=== PATIENT | male | born 1970 | race Caucasian/White ===

== ENCOUNTER 2017-01-04 12:01 | Emergency (ER) | payer MEDICAID, OTHER ==
[~2017-01-04] VITALS: Ht 177.8 cm; Wt 121.5 kg
[2017-01-04] MEDS ORDERED: ESOM40CA PO (13:13)
[2017-01-04] MEDS ORDERED: LACT1CAP11 PO (13:13)
[2017-01-04] MEDS ORDERED: CITA20TA5 PO (13:13)
[2017-01-04] MEDS ORDERED: AMLO10TA2 PO (13:13)
[2017-01-04] MEDS ORDERED: LAMO200T3 PO (13:13)
[2017-01-04] MEDS ORDERED: GABA800T2 PO (13:13)
[2017-01-04] MEDS ORDERED: [UNRECOGNIZED DRUG - OTHER] PO (13:13)
[2017-01-04] MEDS ORDERED: METO-99 PO (13:13)
[2017-01-04] MEDS ORDERED: KETOROLAC 30 MG/1 ML IVPush ONE (13:30)
[2017-01-04] MEDS ORDERED: SODIUM CHLORIDE FLUSH 10ML SYR IVF ONE (13:30)
[2017-01-04] MEDS ORDERED: MORPHINE SULFATE 4 MG/ML, 1ML IVPush PRN (13:30)
[2017-01-04] MEDS ORDERED: SODIUM CHLORIDE 0.9% 1,000ML IVBOLUS ONE (13:30)
[2017-01-04 13:43] LABS: HEMOGLOBIN 16.6 g/dL (13.7-18.0)
[2017-01-04 13:55] LABS: ASPARTATE AMINO TRANSFERASE 26 U/L (15-37); BLOOD UREA NITROGEN 11 mg/dL (7-18)
[2017-01-04 14:02] LABS: RAPID INFLUENZA A Negative (Negative); RAPID INFLUENZA B Negative (Negative)
[2017-01-04] MEDS ORDERED: KETOROLAC 30 MG/1 ML ONE (15:01)
[2017-01-04] MEDS ORDERED: MORPHINE SULFATE 4 MG/ML, 1ML ONE (15:01)
[2017-01-04 16:00] VITALS: BP 106/63
== END 2017-01-04 16:14 | disposition home or self-care (01) ==
LOC: ED 16:08
DX: J20.9 Acute bronchitis, unspecified (principal); J45.909 Unspecified asthma, uncomplicated; K21.9 Gastro-esophageal reflux disease without esophagitis; I10 Essential (primary) hypertension; E66.9 Obesity, unspecified; Z68.38 Body mass index [BMI] 38.0-38.9, adult; F17.210 Nicotine dependence, cigarettes, uncomplicated; Z88.2 Allergy status to sulfonamides
CPT/HCPCS: 36415; 71010; 80053; 85025; 87324; 87400; 96361; 96374; 96375; 99285; J1885; J7030

== ENCOUNTER 2017-02-13 20:47 | Emergency (ER) | payer SELFPAY ==
[~2017-02-13] VITALS: Ht 180.3 cm; Wt 122.4 kg
[~2017-02-13 20:47] MED LIST: AMLO10TA2 PO; CITA20TA5 PO; ESOM40CA PO; GABA800T2 PO; LACT1CAP11 PO; LAMO200T3 PO; METO-99 PO; [UNRECOGNIZED DRUG - OTHER] PO
[2017-02-13 20:50] VITALS: BP 147/84
[2017-02-13] MEDS ORDERED: HYDROcodone/APAP 5/325 TABLET PO ONE (21:30)
[2017-02-13] MEDS ORDERED: HYDROcodone/APAP 5/325 TABLET ONE (21:40)
== END 2017-02-13 22:16 | disposition home or self-care (01) ==
LOC: ED 22:10
DX: M25.562 Pain in left knee (principal); G89.29 Other chronic pain; K21.9 Gastro-esophageal reflux disease without esophagitis; I10 Essential (primary) hypertension; J45.909 Unspecified asthma, uncomplicated
CPT/HCPCS: 99284

== ENCOUNTER 2017-03-16 18:09 | Inpatient (IN) | payer MEDICAID ==
[~2017-03-16] VITALS: Ht 177.8 cm; Wt 122.1 kg
[2017-03-16] MEDS ORDERED: EMTR1TAB12 PO (18:27)
[2017-03-16] MEDS ORDERED: RIZA10TA20 PO (18:27)
[2017-03-16] MEDS ORDERED: NITROGLYCERIN SINGLE TAB 0.4 MG SL ONE (18:47)
[2017-03-16] MEDS: NITROGLYCERIN SINGLE TAB 0.4 MG SL PRN ×2 (18:54→19:02)
[2017-03-16] MEDS ORDERED: SODIUM CHLORIDE FLUSH 10ML SYR IVF ONE (19:00)
[2017-03-16 19:21] LABS: BLOOD UREA NITROGEN 9 mg/dL (7-18)
[2017-03-16] MEDS ORDERED: ONDANSETRON 2MG/ML, 2ML ONE (19:58)
[2017-03-16] MEDS ORDERED: MORPHINE SULFATE 4 MG/ML, 1ML ONE ×2 (19:58→21:59)
[2017-03-16] MEDS ORDERED: ONDANSETRON 2MG/ML, 2ML IVPush ONE (20:00)
[2017-03-16] MEDS: MORPHINE SULFATE 4 MG/ML, 1ML IVPush PRN ×2 (20:04→22:10)
[2017-03-16] MEDS ORDERED: SODIUM CHLORIDE FLUSH 10ML SYR IVF PRN (21:30)
[2017-03-16] MEDS ORDERED: HEPARIN 5,000 UNITS/ML, 1ML ONE (21:59)
[2017-03-16] MEDS ORDERED: HEPARIN 5,000 UNITS/ML, 1ML IV ONE (22:00)
[2017-03-16] MEDS ORDERED: HEPARIN 25,000 UNITS/500ML PMX 500 ML ONE (22:00)
[2017-03-16] MEDS: HEPARIN 25,000 UNITS/500ML PMX 500 ML IV PRN (22:14)
[2017-03-16] MEDS ORDERED: DOCUSATE 100 MG CAPSULE PO PRN (23:00)
[2017-03-16] MEDS ORDERED: TRAZODONE 50MG TABLET PO PRN (23:00)
[2017-03-16] MEDS ORDERED: RIZATRIPTAN BENZOATE PO PRN (23:00)
[2017-03-16] MEDS ORDERED: BISACODYL 10 MG SUPP PR PRN (23:00)
[2017-03-16] MEDS ORDERED: ACETAMINOPHEN 325 MG TABLET PO PRN (23:00)
[2017-03-16] MEDS ORDERED: POLYETHYLENE GLYCOL 17 GM PACKET PO PRN (23:00)
[2017-03-16] MEDS ORDERED: LABETALOL 5MG/ML, 20ML IVPush PRN (23:00)
[2017-03-16 23:46] LABS: IS PT STATUS REG ER OR PRE ER? YES
[2017-03-16 23:59] VITALS: BP 117/81
[2017-03-17] MEDS: SODIUM CHLORIDE 0.9% 1,000 ML IV SCH ×4 (01:30→16:20)
[2017-03-17 03:36] VITALS: BP 116/73
[2017-03-17 06:19] LABS: ASPARTATE AMINO TRANSFERASE 41 U/L (15-37); BLOOD UREA NITROGEN 11 mg/dL (7-18)
[2017-03-17 06:27] LABS: IS PT STATUS REG ER OR PRE ER? NO
[2017-03-17] MEDS: HEPARIN 5,000 UNITS/ML, 1ML IV PRN ×2 (06:33→21:27)
[2017-03-17 07:05] VITALS: BP 118/75
[2017-03-17] MEDS: PANTOPROZOLE 40MG TABLET PO SCH (08:11)
[2017-03-17] MEDS: EMTRICITABINE/TENOFOVIR 200 MG/300 MG TABLET PO SCH (08:11)
[2017-03-17] MEDS: ASPIRIN 81 MG TABLET CHEW PO SCH (08:11)
[2017-03-17] MEDS: LAMOTRIGINE 200 MG TABLET PO SCH ×2 (08:12→20:44)
[2017-03-17] MEDS: GABAPENTIN 400 MG CAPSULE PO SCH ×3 (08:12→21:23)
[2017-03-17] MEDS: AMLODIPINE 5 MG TABLET PO SCH (08:12)
[2017-03-17] MEDS: CITALOPRAM 20 MG TABLET PO SCH (08:12)
[2017-03-17] MEDS: METOPROLOL TARTRATE 100 MG TABLET PO SCH ×2 (08:13→20:44)
[2017-03-17] MEDS: LACTOBACILLUS 1GM/ PACKET PO SCH (08:13)
[2017-03-17] MEDS ORDERED: FENTANYL PF 100 MCG/2ML ONE (12:44)
[2017-03-17] MEDS ORDERED: LIDOCAINE 2%, 20ML ONE (12:44)
[2017-03-17] MEDS ORDERED: TICAGRELOR 90 MG TABLET ONE (12:44)
[2017-03-17] MEDS ORDERED: MIDAZOLAM 1 MG/ML, 5ML ONE (12:44)
[2017-03-17] MEDS ORDERED: BIVALIRUDIN 250 MG ONE (12:44)
[2017-03-17] MEDS ORDERED: VERAPAMIL 2.5 MG/ML, 2ML ONE (12:44)
[2017-03-17] MEDS ORDERED: HEPARIN 1,000 UNITS/ML, 10ML ONE (12:44)
[2017-03-17] MEDS ORDERED: DIPHENHYDRAMINE 50 MG/ML, 1ML ONE (13:11)
[2017-03-17] MEDS ORDERED: SODIUM CHLORIDE 0.9% 1,000 ML IV SCH (14:08)
[2017-03-17 14:23] VITALS: BP 112/69
[2017-03-17 15:53] LABS: HIV 1&2 ANTIBODY SCREEN Nonreactive (Nonreactive); HIV-1 p24 ANTIGEN Nonreactive (Nonreactive)
[2017-03-17 20:16] VITALS: BP 115/74
[2017-03-17] MEDS: HEPARIN 25,000 UNITS/500ML PMX 500 ML IV PRN (21:32)
[2017-03-18] VITALS (8 sets, daily range): BP systolic 103–120; BP diastolic 58–83
[2017-03-18] MEDS: SODIUM CHLORIDE 0.9% 1,000 ML IV SCH ×2 (03:07→09:52)
[2017-03-18] MEDS: HEPARIN 5,000 UNITS/ML, 1ML IV PRN ×2 (06:33→20:06)
[2017-03-18] MEDS: ASPIRIN 81 MG TABLET CHEW PO SCH (09:49)
[2017-03-18] MEDS: CITALOPRAM 20 MG TABLET PO SCH (09:49)
[2017-03-18] MEDS: LACTOBACILLUS 1GM/ PACKET PO SCH (09:49)
[2017-03-18] MEDS: METOPROLOL TARTRATE 100 MG TABLET PO SCH ×2 (09:50→20:38)
[2017-03-18] MEDS: GABAPENTIN 400 MG CAPSULE PO SCH ×3 (09:50→20:12)
[2017-03-18] MEDS: LAMOTRIGINE 200 MG TABLET PO SCH ×2 (09:50→20:12)
[2017-03-18] MEDS: PANTOPROZOLE 40MG TABLET PO SCH (09:51)
[2017-03-18] MEDS: EMTRICITABINE/TENOFOVIR 200 MG/300 MG TABLET PO SCH (09:51)
[2017-03-18] MEDS: AMLODIPINE 5 MG TABLET PO SCH (09:51)
[2017-03-18] MEDS ORDERED: NITROGLYCERIN 0.4 MG/SPRAY ONE (13:45)
[2017-03-18] MEDS: NITROGLYCERIN 0.4 MG/SPRAY SL PRN ×3 (13:51→13:55)
[2017-03-18] MEDS ORDERED: NITROGLYCERIN 0.4 MG BOTTLE (25 TABS) SL PRN (14:00)
[2017-03-18] MEDS ORDERED: MORPHINE SULFATE 4 MG/ML, 1ML ONE (14:04)
[2017-03-18] MEDS: morphine SULFATE 10 MG/ML, 1ML IVPush PRN ×2 (14:06→14:20)
[2017-03-18] MEDS: NITROGLYCERIN OINT 2%, 1GM TP SCH ×2 (14:30→20:13)
[2017-03-18] MEDS: HEPARIN 25,000 UNITS/500ML PMX 500 ML IV PRN (16:04)
[2017-03-19] MEDS: SODIUM CHLORIDE 0.9% 1,000 ML IV SCH ×3 (01:00→20:34)
[2017-03-19 01:23] VITALS: BP 98/59
[2017-03-19] MEDS: NITROGLYCERIN OINT 2%, 1GM TP SCH (03:03)
[2017-03-19] MEDS ORDERED: REGULAR INSULIN 62.5 UNITS in SODIUM CHLORIDE 0.9% 249.375 ML IV PRN ×3 (07:30→16:19)
[2017-03-19] MEDS ORDERED: DEXMEDETOMIDINE 200 MCG in SODIUM CHLORIDE 0.9% 48 ML IV SCH ×2 (07:30→13:00)
[2017-03-19 07:42] VITALS: BP 139/72
[2017-03-19 07:48] VITALS: BP 106/72
[2017-03-19] MEDS: morphine SULFATE 10 MG/ML, 1ML IVPush PRN ×4 (07:51→20:02)
[2017-03-19] MEDS ORDERED: NITROGLYCERIN/D5W PMX 250 ML IV PRN ×2 (08:00→16:19)
[2017-03-19] MEDS ORDERED: MORPHINE SULFATE 4 MG/ML, 1ML ONE (08:46)
[2017-03-19] MEDS: LACTOBACILLUS 1GM/ PACKET PO SCH (09:00)
[2017-03-19] MEDS: AMLODIPINE 5 MG TABLET PO SCH (09:00)
[2017-03-19] MEDS: EMTRICITABINE/TENOFOVIR 200 MG/300 MG TABLET PO SCH (09:00)
[2017-03-19] MEDS: CITALOPRAM 20 MG TABLET PO SCH (09:00)
[2017-03-19] MEDS: ASPIRIN 81 MG TABLET CHEW PO SCH (09:00)
[2017-03-19] MEDS: GABAPENTIN 400 MG CAPSULE PO SCH ×2 (09:00→16:00)
[2017-03-19] MEDS: PANTOPROZOLE 40MG TABLET PO SCH (09:00)
[2017-03-19] MEDS: LAMOTRIGINE 200 MG TABLET PO SCH (09:00)
[2017-03-19] MEDS: METOPROLOL TARTRATE 100 MG TABLET PO SCH (09:35)
[2017-03-19] MEDS ORDERED: FENTANYL PF 100 MCG/2ML ONE (10:19)
[2017-03-19] MEDS ORDERED: MIDAZOLAM 1 MG/ML, 5ML ONE (10:19)
[2017-03-19] MEDS ORDERED: LIDOCAINE 2%, 20ML ONE (10:20)
[2017-03-19] MEDS ORDERED: HEPARIN 1,000 UNITS/ML, 10ML ONE (10:20)
[2017-03-19] MEDS ORDERED: FENTANYL PF 1000 MCG/20ML ONE (10:29)
[2017-03-19] MEDS ORDERED: MIDAZOLAM 10MG/2 ML ONE (10:29)
[2017-03-19] MEDS ORDERED: VERAPAMIL 2.5 MG/ML, 2ML ONE (11:06)
[2017-03-19] MEDS ORDERED: EPINEPHRINE 2 MG in SODIUM CHLORIDE 0.9% 248 ML IV SCH ×2 (12:00→13:00)
[2017-03-19] MEDS ORDERED: MANNITOL PMX 20% 500 ML IVPB PRN ×2 (12:00→13:00)
[2017-03-19] MEDS ORDERED: ALBUMIN HUMAN 5% 500 ML IV ONE ×2 (12:00→13:00)
[2017-03-19] MEDS ORDERED: PHENYLEPHRINE 10 MG in SODIUM CHLORIDE 0.9% 249 ML IV PRN ×3 (12:00→16:19)
[2017-03-19] MEDS ORDERED: POTASSIUM CHLORIDE 80 MEQ, SODIUM BICARBONATE 8.4% 10 MEQ, MAGNESIUM SULFATE 0.5 GM, LI... IV PRN ×2 (12:00→13:00)
[2017-03-19] MEDS ORDERED: PROPOFOL 10 MG/ML, 20ML ONE (12:35)
[2017-03-19] MEDS ORDERED: DEXAMETHASONE 4 MG/ML, 5ML ONE (12:35)
[2017-03-19] MEDS ORDERED: DEXAMETHASONE 4 MG/ML, 1ML ONE (12:35)
[2017-03-19] MEDS ORDERED: ROCURONIUM 10 MG/ML ONE (12:35)
[2017-03-19] MEDS ORDERED: CEFUROXIME 1.5 GM in SODIUM CHLORIDE 0.9% 50 ML IVPB ONE (13:00)
[2017-03-19] MEDS ORDERED: VANCOMYCIN 1,800 MG in SODIUM CHLORIDE 0.9% 250 ML IV ONE (13:00)
[2017-03-19] MEDS ORDERED: PROTAMINE SULFATE 10 MG/ML, 25ML ONE ×2 (16:08)
[2017-03-19] MEDS ORDERED: AMINOCAPROIC ACID 250 MG/ML, 20ML ONE ×2 (16:09)
[2017-03-19] MEDS ORDERED: CALCIUM CHLORIDE 10%, 10ML SYR ONE (16:09)
[2017-03-19] MEDS ORDERED: SODIUM CHLORIDE 0.9% 1,000 ML IV PRN (16:19)
[2017-03-19] MEDS ORDERED: DOBUTAMINE 250 MG in SODIUM CHLORIDE 0.9% 230 ML IV PRN (16:19)
[2017-03-19] MEDS ORDERED: SODIUM BICARB 8.4%, 50ML SYRINGE IV PRN (16:30)
[2017-03-19] MEDS ORDERED: PROCHLORPERAZINE 5 MG/ML, 2ML IVPush PRN (16:30)
[2017-03-19] MEDS ORDERED: MIDAZOLAM 1 MG/ML, 5ML IVPush PRN (16:30)
[2017-03-19] MEDS ORDERED: LACTATED RINGERS 500 ML IVBOLUS PRN (16:30)
[2017-03-19] MEDS ORDERED: ACETAMINOPHEN 650 MG SUPP PR PRN (16:30)
[2017-03-19] MEDS ORDERED: GLUCAGON 1 MG IM PRN (16:30)
[2017-03-19] MEDS ORDERED: DEXTROSE 4 GM TAB.CHEW PO PRN (16:30)
[2017-03-19] MEDS ORDERED: BISACODYL 10 MG SUPP PR PRN (16:30)
[2017-03-19] MEDS ORDERED: ACETAMINOPHEN 325 MG TABLET PO PRN (16:30)
[2017-03-19] MEDS ORDERED: EPINEPHRINE 2 MG in SODIUM CHLORIDE 0.9% 248 ML IV PRN (16:30)
[2017-03-19] MEDS ORDERED: ONDANSETRON 2MG/ML, 2ML IVPush PRN (16:30)
[2017-03-19] MEDS ORDERED: MEPERIDINE/PF 25MG/0.5ML IVPush PRN (16:30)
[2017-03-19] MEDS ORDERED: BISACODYL 5 MG EC TABLET PO PRN (16:30)
[2017-03-19] MEDS ORDERED: DEXTROSE 50%, 50ML SYRINGE IVPush PRN (16:30)
[2017-03-19] MEDS ORDERED: HEPARIN 1,000 UNITS/ML, 30ML ONE ×2 (16:39→16:43)
[2017-03-19] MEDS ORDERED: PAPAVERINE 30 MG/ML, 2ML ONE (16:39)
[2017-03-19] MEDS ORDERED: ALBUMIN HUMAN 25% 50 ML ONE (16:43)
[2017-03-19] MEDS ORDERED: LIDOCAINE 2% 100MG/5ML SYRINGE ONE (16:43)
[2017-03-19] MEDS ORDERED: methylPREDNISolone SOD SUCC 125 MG/2 ML ONE (16:44)
[2017-03-19 16:57] LABS: ABG COLLECTION SITE ARTERIAL LINE
[2017-03-19] MEDS: KSCALE TO 4.5 IV SCH ×2 (17:48→23:00)
[2017-03-19] MEDS ORDERED: POTASSIUM CHLORIDE PMX 100 ML IV ONE (18:30)
[2017-03-19] MEDS: DEXMEDETOMIDINE 200 MCG in SODIUM CHLORIDE 0.9% 48 ML IV PRN ×3 (18:34→23:47)
[2017-03-19] MEDS: MAGNESIUM SULFATE 1 GM in SODIUM CHLORIDE 0.9% 50 ML IVPB SCH (19:27)
[2017-03-19] MEDS: CLEVIDIPINE 50 ML IV PRN (19:28)
[2017-03-19] MEDS: SODIUM CHLORIDE FLUSH 10ML SYR IVF SCH (20:35)
[2017-03-19] MEDS: DOCUSATE 100 MG CAPSULE PO SCH (21:00)
[2017-03-19] MEDS: MUPIROCIN OINT 2%, 22GM NAS SCH (23:48)
[2017-03-19] MEDS: CEFUROXIME 1.5 GM in SODIUM CHLORIDE 0.9% 50 ML IVPB SCH (23:49)
[2017-03-20] MEDS: LAMOTRIGINE 200 MG TABLET PO SCH ×3 (00:03→21:14)
[2017-03-20] MEDS: GABAPENTIN 400 MG CAPSULE PO SCH ×4 (00:03→21:15)
[2017-03-20] MEDS: OXYcodone IR 5MG TABLET PO PRN ×5 (00:21→20:44)
[2017-03-20] MEDS: VANCOMYCIN 1,800 MG in SODIUM CHLORIDE 0.9% 250 ML IVPB SCH ×2 (01:35→13:53)
[2017-03-20] MEDS: DEXMEDETOMIDINE 200 MCG in SODIUM CHLORIDE 0.9% 48 ML IV PRN (03:46)
[2017-03-20] MEDS: HYDROcodone/APAP 10/325 MG TABLET PO PRN ×2 (04:37→13:58)
[2017-03-20] MEDS: KSCALE TO 4.5 IV SCH ×3 (05:00→17:00)
[2017-03-20 05:13] VITALS: BP 116/59
[2017-03-20 05:20] LABS: ABG COLLECTION SITE NOT DOCUMENTED
[2017-03-20 05:23] LABS: BLOOD UREA NITROGEN 13 mg/dL (7-18)
[2017-03-20] MEDS: SODIUM CHLORIDE 0.9% 1,000 ML IV SCH ×2 (07:00→17:00)
[2017-03-20] MEDS ORDERED: ALBUTEROL/IPRATROPIUM 2.5MG/0.5MG, 3 ML ONE (08:25)
[2017-03-20] MEDS: ALBUTEROL SULFATE 2.5 MG/3 ML NPPB PRN (08:48)
[2017-03-20] MEDS: MUPIROCIN OINT 2%, 22GM NAS SCH ×2 (09:42→21:14)
[2017-03-20] MEDS: PANTOPRAZOLE 40 MG IV IVPush SCH (09:42)
[2017-03-20] MEDS: SODIUM CHLORIDE FLUSH 10ML SYR IVF SCH ×2 (09:43→21:00)
[2017-03-20] MEDS: ASPIRIN 81 MG TABLET EC PO SCH (11:49)
[2017-03-20] MEDS: METOPROLOL TARTRATE 25 MG TABLET PO/NG SCH ×2 (11:49→21:14)
[2017-03-20] MEDS: CEFUROXIME 1.5 GM in SODIUM CHLORIDE 0.9% 50 ML IVPB SCH (12:33)
[2017-03-20] MEDS: LACTOBACILLUS 1GM/ PACKET PO SCH (14:43)
[2017-03-20] MEDS: DOCUSATE 100 MG CAPSULE PO SCH ×2 (14:44→21:13)
[2017-03-20] MEDS: EMTRICITABINE/TENOFOVIR 200 MG/300 MG TABLET PO SCH (14:44)
[2017-03-20] MEDS: CITALOPRAM 20 MG TABLET PO SCH (14:44)
[2017-03-20] MEDS: CHLORHEXIDINE MOUTHWASH 15 ML UDC MM SCH (15:54)
[2017-03-20] MEDS: INSULIN ASPART 100 UNITS/ML, PEN SQ-INSULIN PRN ×3 (17:32→21:31)
[2017-03-20] MEDS: MAGNESIUM SULFATE 1 GM in SODIUM CHLORIDE 0.9% 50 ML IVPB SCH (17:38)
[2017-03-20] MEDS: CLEVIDIPINE 50 ML IV PRN (18:19)
[2017-03-20] MEDS ORDERED: POTASSIUM CHLORIDE PMX 100 ML IV ONE (18:30)
[2017-03-21] MEDS: OXYcodone IR 5MG TABLET PO PRN ×6 (00:52→20:15)
[2017-03-21] MEDS: INSULIN ASPART 100 UNITS/ML, PEN SQ-INSULIN PRN ×5 (01:08→20:27)
[2017-03-21] MEDS: KSCALE TO 4.5 IV SCH ×2 (01:27→06:32)
[2017-03-21] MEDS: SODIUM CHLORIDE 0.9% 1,000 ML IV SCH (03:05)
[2017-03-21] MEDS: HYDROcodone/APAP 10/325 MG TABLET PO PRN (04:32)
[2017-03-21] MEDS: CHLORHEXIDINE MOUTHWASH 15 ML UDC MM SCH ×2 (04:32→16:28)
[2017-03-21 04:35] LABS: ABG COLLECTION SITE ARTERIAL LINE
[2017-03-21 04:47] LABS: BLOOD UREA NITROGEN 13 mg/dL (7-18)
[2017-03-21 05:00] VITALS: BP 112/64
[2017-03-21 05:06] LABS: FIO2 50 %
[2017-03-21] MEDS: DOCUSATE 100 MG CAPSULE PO SCH ×2 (07:32→20:15)
[2017-03-21] MEDS: POTASSIUM CHLORIDE 10 MEQ TABLET.ER PO SCH (07:32)
[2017-03-21] MEDS: EMTRICITABINE/TENOFOVIR 200 MG/300 MG TABLET PO SCH (07:32)
[2017-03-21] MEDS: LAMOTRIGINE 200 MG TABLET PO SCH ×2 (07:32→20:14)
[2017-03-21] MEDS: CITALOPRAM 20 MG TABLET PO SCH (07:32)
[2017-03-21] MEDS: ASPIRIN 81 MG TABLET EC PO SCH (07:32)
[2017-03-21] MEDS: GABAPENTIN 400 MG CAPSULE PO SCH ×3 (07:32→20:14)
[2017-03-21] MEDS: PANTOPRAZOLE 40 MG IV IVPush SCH (07:33)
[2017-03-21] MEDS: FUROSEMIDE 20 MG/2 ML IV SCH (07:33)
[2017-03-21] MEDS: SODIUM CHLORIDE FLUSH 10ML SYR IVF SCH ×2 (07:33→20:16)
[2017-03-21] MEDS: METOPROLOL TARTRATE 25 MG TABLET PO/NG SCH ×2 (07:33→20:15)
[2017-03-21] MEDS: MUPIROCIN OINT 2%, 22GM NAS SCH ×2 (07:33→20:15)
[2017-03-21] MEDS: ENOXAPARIN 40 MG/0.4 ML SQ SCH (08:10)
[2017-03-21] MEDS ORDERED: FUROSEMIDE 40 MG/4 ML IV ONE ×2 (08:30→21:00)
[2017-03-21] MEDS: ALBUTEROL SULFATE 2.5 MG/3 ML NPPB PRN ×2 (14:10→20:03)
[2017-03-21] MEDS ORDERED: DEXTROSE 50%, 50ML SYRINGE IVPush PRN (16:00)
[2017-03-21] MEDS ORDERED: SODIUM CHLORIDE 0.9% 1,000 ML IV PRN (16:00)
[2017-03-21] MEDS ORDERED: DEXTROSE 4 GM TAB.CHEW PO PRN (16:00)
[2017-03-21] MEDS: MAGNESIUM SULFATE 1 GM in SODIUM CHLORIDE 0.9% 50 ML IVPB SCH (16:28)
[2017-03-22] MEDS: INSULIN ASPART 100 UNITS/ML, PEN SQ-INSULIN PRN ×3 (00:22→20:49)
[2017-03-22] MEDS: OXYcodone IR 5MG TABLET PO PRN ×4 (04:45→20:39)
[2017-03-22] MEDS: CHLORHEXIDINE MOUTHWASH 15 ML UDC MM SCH (04:54)
[2017-03-22 05:00] VITALS: BP 124/64
[2017-03-22 06:10] LABS: BLOOD UREA NITROGEN 11 mg/dL (7-18)
[2017-03-22] MEDS: GABAPENTIN 400 MG CAPSULE PO SCH ×3 (09:23→20:39)
[2017-03-22] MEDS: METOPROLOL TARTRATE 25 MG TABLET PO/NG SCH ×2 (09:24→20:38)
[2017-03-22] MEDS: CLOPIDOGREL 75 MG TABLET PO SCH (09:24)
[2017-03-22] MEDS: EMTRICITABINE/TENOFOVIR 200 MG/300 MG TABLET PO SCH (09:24)
[2017-03-22] MEDS: CITALOPRAM 20 MG TABLET PO SCH (09:25)
[2017-03-22] MEDS: LAMOTRIGINE 200 MG TABLET PO SCH ×2 (09:25→20:39)
[2017-03-22] MEDS: POTASSIUM CHLORIDE 10 MEQ TABLET.ER PO SCH (09:25)
[2017-03-22] MEDS: MUPIROCIN OINT 2%, 22GM NAS SCH ×2 (09:26→20:39)
[2017-03-22] MEDS: ASPIRIN 81 MG TABLET EC PO SCH (09:26)
[2017-03-22] MEDS: DOCUSATE 100 MG CAPSULE PO SCH ×2 (09:26→20:39)
[2017-03-22] MEDS: PANTOPRAZOLE 40 MG IV IVPush SCH (09:27)
[2017-03-22] MEDS: ENOXAPARIN 40 MG/0.4 ML SQ SCH (09:27)
[2017-03-22] MEDS: FUROSEMIDE 20 MG/2 ML IV SCH (09:28)
[2017-03-22] MEDS: SODIUM CHLORIDE FLUSH 10ML SYR IVF SCH ×2 (09:32→20:40)
[2017-03-22] MEDS: LISINOPRIL 10 MG TABLET PO SCH (15:52)
[2017-03-22] MEDS: PRAVASTATIN 20 MG TABLET PO SCH (20:39)
[2017-03-23] MEDS: OXYcodone IR 5MG TABLET PO PRN ×7 (00:36→21:26)
[2017-03-23 04:00] VITALS: BP 101/41
[2017-03-23 05:00] LABS: BLOOD UREA NITROGEN 14 mg/dL (7-18)
[2017-03-23] MEDS ORDERED: MAGNESIUM HYDROXIDE 8%, 30ML UDC PO PRN (07:30)
[2017-03-23] MEDS: PANTOPROZOLE 40MG TABLET PO SCH (08:05)
[2017-03-23] MEDS: FUROSEMIDE 20 MG/2 ML IV SCH (08:05)
[2017-03-23] MEDS: CITALOPRAM 20 MG TABLET PO SCH (08:06)
[2017-03-23] MEDS: ASPIRIN 81 MG TABLET EC PO SCH (08:06)
[2017-03-23] MEDS: MUPIROCIN OINT 2%, 22GM NAS SCH ×2 (08:06→21:26)
[2017-03-23] MEDS: DOCUSATE 100 MG CAPSULE PO SCH ×2 (08:06→21:25)
[2017-03-23] MEDS: CLOPIDOGREL 75 MG TABLET PO SCH (08:07)
[2017-03-23] MEDS: POTASSIUM CHLORIDE 10 MEQ TABLET.ER PO SCH (08:07)
[2017-03-23] MEDS: LAMOTRIGINE 200 MG TABLET PO SCH ×2 (08:07→21:25)
[2017-03-23] MEDS: GABAPENTIN 400 MG CAPSULE PO SCH ×3 (08:07→21:25)
[2017-03-23] MEDS: LISINOPRIL 10 MG TABLET PO SCH (08:08)
[2017-03-23] MEDS: EMTRICITABINE/TENOFOVIR 200 MG/300 MG TABLET PO SCH (08:08)
[2017-03-23] MEDS: EZETIMIBE 10 MG TABLET PO SCH (08:08)
[2017-03-23] MEDS: ENOXAPARIN 40 MG/0.4 ML SQ SCH (08:09)
[2017-03-23] MEDS: INSULIN ASPART 100 UNITS/ML, PEN SQ-INSULIN PRN ×2 (08:09→12:24)
[2017-03-23] MEDS: METOPROLOL TARTRATE 25 MG TABLET PO/NG SCH (08:09)
[2017-03-23] MEDS: SODIUM CHLORIDE FLUSH 10ML SYR IVF SCH ×3 (09:00→21:25)
[2017-03-23] MEDS: METOPROLOL SUCCINATE 25 MG TAB.ER.24H PO SCH (15:05)
[2017-03-23 20:00] VITALS: BP 124/55
[2017-03-23] MEDS: PRAVASTATIN 20 MG TABLET PO SCH (21:25)
[2017-03-24] MEDS: OXYcodone IR 5MG TABLET PO PRN ×7 (00:56→22:35)
[2017-03-24 04:00] VITALS: BP 110/68
[2017-03-24 05:09] LABS: BLOOD UREA NITROGEN 13 mg/dL (7-18)
[2017-03-24] MEDS: METOPROLOL SUCCINATE 25 MG TAB.ER.24H PO SCH (06:23)
[2017-03-24 07:00] VITALS: BP 111/73
[2017-03-24] MEDS: SODIUM CHLORIDE FLUSH 10ML SYR IVF SCH ×4 (07:39→22:34)
[2017-03-24] MEDS: ENOXAPARIN 40 MG/0.4 ML SQ SCH (07:52)
[2017-03-24] MEDS: FUROSEMIDE 20 MG/2 ML IV SCH (07:52)
[2017-03-24] MEDS: EMTRICITABINE/TENOFOVIR 200 MG/300 MG TABLET PO SCH (07:53)
[2017-03-24] MEDS: ASPIRIN 81 MG TABLET EC PO SCH (07:53)
[2017-03-24] MEDS: LAMOTRIGINE 200 MG TABLET PO SCH ×2 (07:53→22:34)
[2017-03-24] MEDS: CLOPIDOGREL 75 MG TABLET PO SCH (07:53)
[2017-03-24] MEDS: EZETIMIBE 10 MG TABLET PO SCH (07:54)
[2017-03-24] MEDS: POTASSIUM CHLORIDE 10 MEQ TABLET.ER PO SCH (07:54)
[2017-03-24] MEDS: GABAPENTIN 400 MG CAPSULE PO SCH ×3 (07:54→22:35)
[2017-03-24] MEDS: LISINOPRIL 10 MG TABLET PO SCH (07:54)
[2017-03-24] MEDS: CITALOPRAM 20 MG TABLET PO SCH (07:55)
[2017-03-24] MEDS: PANTOPROZOLE 40MG TABLET PO SCH (07:55)
[2017-03-24] MEDS: DOCUSATE 100 MG CAPSULE PO SCH ×2 (07:55→22:34)
[2017-03-24] MEDS: MUPIROCIN OINT 2%, 22GM NAS SCH (07:55)
[2017-03-24] MEDS: GUAIFENESIN 200 MG TABLET PO SCH ×3 (12:24→21:00)
[2017-03-24 14:37] VITALS: BP 115/72
[2017-03-24] MEDS ORDERED: POTASSIUM CHLORIDE 20 MEQ TAB.ER.PRT PO ONE (17:30)
[2017-03-24 20:11] VITALS: BP 129/75
[2017-03-24] MEDS: PRAVASTATIN 20 MG TABLET PO SCH (22:35)
[2017-03-25] MEDS: OXYcodone IR 5MG TABLET PO PRN (04:19)
[2017-03-25 04:49] VITALS: BP 122/73
[2017-03-25] MEDS: GUAIFENESIN 200 MG TABLET PO SCH ×2 (05:03→10:55)
[2017-03-25] MEDS: METOPROLOL SUCCINATE 25 MG TAB.ER.24H PO SCH (05:05)
[2017-03-25 06:38] LABS: BLOOD UREA NITROGEN 14 mg/dL (7-18)
[2017-03-25] MEDS: SODIUM CHLORIDE FLUSH 10ML SYR IVF SCH ×2 (07:23→08:08)
[2017-03-25] MEDS ORDERED: FURO-93 PO (07:26)
[2017-03-25] MEDS ORDERED: CLOP75TA PO (07:26)
[2017-03-25] MEDS ORDERED: POTA10TA5 PO (07:26)
[2017-03-25] MEDS ORDERED: DOCU-30 PO (07:26)
[2017-03-25] MEDS ORDERED: LISI-167 PO (07:26)
[2017-03-25] MEDS ORDERED: PRAV20TA PO (07:26)
[2017-03-25] MEDS ORDERED: ASPI-621 PO (07:26)
[2017-03-25] MEDS ORDERED: METO25TA91 PO (07:26)
[2017-03-25] MEDS ORDERED: EZET10TA3 PO (07:26)
[2017-03-25] MEDS ORDERED: LACTULOSE 20 GM/30 ML UDC PO PRN (07:30)
[2017-03-25] MEDS ORDERED: HYDROcodone/APAP 10/325 MG TABLET PO PRN (07:30)
[2017-03-25 07:55] VITALS: BP 124/82
[2017-03-25] MEDS: CITALOPRAM 20 MG TABLET PO SCH (08:06)
[2017-03-25] MEDS: LISINOPRIL 10 MG TABLET PO SCH (08:06)
[2017-03-25] MEDS: GABAPENTIN 400 MG CAPSULE PO SCH (08:06)
[2017-03-25] MEDS: EMTRICITABINE/TENOFOVIR 200 MG/300 MG TABLET PO SCH (08:07)
[2017-03-25] MEDS: LAMOTRIGINE 200 MG TABLET PO SCH (08:07)
[2017-03-25] MEDS: EZETIMIBE 10 MG TABLET PO SCH (08:07)
[2017-03-25] MEDS: POTASSIUM CHLORIDE 10 MEQ TABLET.ER PO SCH (08:07)
[2017-03-25] MEDS: DOCUSATE 100 MG CAPSULE PO SCH (08:08)
[2017-03-25] MEDS: PANTOPROZOLE 40MG TABLET PO SCH (08:09)
[2017-03-25] MEDS: ASPIRIN 81 MG TABLET EC PO SCH (08:10)
[2017-03-25] MEDS: ENOXAPARIN 40 MG/0.4 ML SQ SCH (08:11)
[2017-03-25] MEDS ORDERED: CLOPIDOGREL 75 MG TABLET PO SCH (09:00)
[2017-03-25] MEDS ORDERED: FUROSEMIDE 20 MG/2 ML IV SCH (09:00)
[2017-03-25] MEDS ORDERED: HYDR-3307 PO (13:40)
[2017-03-25] MEDS ORDERED: OXYC5CAP4 PO (13:40)
== END 2017-03-25 14:15 | disposition home health service (06) | DRG 233 ==
LOC: ED 20:34 → EDIP 21:27 → 5SO 23:50 → CCU 03-19 08:34 → 5SO 03-24 05:18 → DCLOUNGE 03-25 13:35
PROVIDERS: ADMIT Internal Medicine; ATTEND Internal Medicine
PROC: 4A023N7 Measurement of Cardiac Sampling and Pressure, Left Heart, Percutaneous Approach (ICD-10-PCS; principal; 2017-03-16)
PROC: B2111ZZ Fluoroscopy of Multiple Coronary Arteries using Low Osmolar Contrast (ICD-10-PCS; 2017-03-16)
PROC: B2151ZZ Fluoroscopy of Left Heart using Low Osmolar Contrast (ICD-10-PCS; 2017-03-16)
PROC: 021009W Bypass Coronary Artery, One Artery from Aorta with Autologous Venous Tissue, Open Approach (ICD-10-PCS; 2017-03-19)
PROC: 06BP4ZZ Excision of Right Saphenous Vein, Percutaneous Endoscopic Approach (ICD-10-PCS; 2017-03-19)
PROC: 02100Z9 Bypass Coronary Artery, One Artery from Left Internal Mammary, Open Approach (ICD-10-PCS; 2017-03-19)
PROC: 5A02210 Assistance with Cardiac Output using Balloon Pump, Continuous (ICD-10-PCS; 2017-03-19)
PROC: 5A1221Z Performance of Cardiac Output, Continuous (ICD-10-PCS; 2017-03-19)
PROC: 03HY32Z Insertion of Monitoring Device into Upper Artery, Percutaneous Approach (ICD-10-PCS; 2017-03-19)
DX: I21.4 Non-ST elevation (NSTEMI) myocardial infarction (principal); J96.00 Acute respiratory failure, unspecified whether with hypoxia or hypercapnia; Z99.11 Dependence on respirator [ventilator] status; F17.210 Nicotine dependence, cigarettes, uncomplicated; I10 Essential (primary) hypertension; J45.909 Unspecified asthma, uncomplicated; K21.9 Gastro-esophageal reflux disease without esophagitis; D72.828 Other elevated white blood cell count; E66.01 Morbid (severe) obesity due to excess calories; E78.00 Pure hypercholesterolemia, unspecified; E78.5 Hyperlipidemia, unspecified; E87.6 Hypokalemia; F31.9 Bipolar disorder, unspecified; G43.909 Migraine, unspecified, not intractable, without status migrainosus; I25.119 Atherosclerotic heart disease of native coronary artery with unspecified angina pectoris; G62.9 Polyneuropathy, unspecified; Z79.899 Other long term (current) drug therapy; Z82.49 Family history of ischemic heart disease and other diseases of the circulatory system; Z86.711 Personal history of pulmonary embolism; Z88.2 Allergy status to sulfonamides; Z68.37 Body mass index [BMI] 37.0-37.9, adult; Z90.49 Acquired absence of other specified parts of digestive tract; Z90.89 Acquired absence of other organs; Z88.8 Allergy status to other drugs, medicaments and biological substances
CPT/HCPCS: 33967; 36415; 36600; 71010; 80048; 80053; 82040; 82330; 82607; 82746; 82800; 82803; 82810; 82947; 82962; 83036; 83735; 83880; 84132; 84295; 84439; 84443; 84484; 85014; 85018; 85025; 85049; 85347; 85520; 85610; 85730; 86703; 86850; 86900; 86923; 87081; 87899; 93005; 93312; 93321; 93325; 93458; 93880; 93970; 94002; 94003; 94640; 96374; 96375; 99156; 99157; C1725; C1894; C8929; J0583; J0697; J1100; J1644; J1650; J1815; J1940; J2250; J2405; J2704; J2720; J3010; J3370; J3475; J3480; J3490; J7613; P9045; P9047; C1751; C1769; C1887; C9113; C9248; G0435; J0171; J1200; J2270; J2370; J2440; J2930; J7030; J7050; Q9967

== ENCOUNTER → 2017-04-22 | Outpatient (CLI) | payer MEDICAID ==
[~2017-04-22] MED LIST changes: +ASPI-621 PO; +CLOP75TA PO; +DOCU-30 PO; +EMTR1TAB12 PO; +EZET10TA3 PO; +FURO-93 PO; +HYDR-3307 PO; +LISI-167 PO; +METO25TA91 PO; +OXYC5CAP4 PO; +POTA10TA5 PO; +PRAV20TA PO; +RIZA10TA20 PO
== END | disposition home or self-care (01) ==
LOC: CFH 11:21
PROVIDERS: ATTEND Nurse Practitioner Family
DX: Z02.9 Encounter for administrative examinations, unspecified (principal)

== ENCOUNTER 2017-04-23 21:34 | Emergency (ER) | payer MEDICAID ==
[~2017-04-23] VITALS: Ht 177.8 cm; Wt 112.5 kg
[2017-04-23] MEDS ORDERED: SODIUM CHLORIDE FLUSH 10ML SYR IVF ONE (22:30)
[2017-04-23] MEDS ORDERED: PLEASE ENTER HEIGHT AND WEIGHT MC SCH (22:30)
[2017-04-23 22:54] LABS: ASPARTATE AMINO TRANSFERASE 15 U/L (15-37); BLOOD UREA NITROGEN 8 mg/dL (7-18)
[2017-04-23 22:59] LABS: IS PT STATUS REG ER OR PRE ER? YES
[2017-04-23] MEDS ORDERED: OMNIPAQUE 350 MG/ML, 100ML BOTTLE ONE (23:28)
[2017-04-24] MEDS ORDERED: MORPHINE SULFATE 4 MG/ML, 1ML IVPush PRN (00:30)
[2017-04-24] MEDS ORDERED: MORPHINE SULFATE 4 MG/ML, 1ML ONE (00:37)
[2017-04-24 01:14] LABS: IS PT STATUS REG ER OR PRE ER? YES
[2017-04-24 02:28] VITALS: BP 108/75
== END 2017-04-24 02:37 | disposition home or self-care (01) ==
LOC: ED 21:46
DX: R07.89 Other chest pain (principal); N30.90 Cystitis, unspecified without hematuria; I10 Essential (primary) hypertension; N34.1 Nonspecific urethritis; J45.909 Unspecified asthma, uncomplicated; Z87.891 Personal history of nicotine dependence; Z95.1 Presence of aortocoronary bypass graft; Z88.0 Allergy status to penicillin
CPT/HCPCS: 36415; 71010; 71275; 80053; 81001; 84484; 85025; 87086; 87491; 87591; 93005; 96374; 99285; Q9967

== ENCOUNTER → 2017-07-09 | Outpatient (CLI) | payer MEDICAID ==
[~2017-07-09] MED LIST changes: +DOCU-131 PO; -DOCU-30 PO; -EMTR1TAB12 PO; +EMTR1TAB8 PO; +EZET10TA18 PO; -EZET10TA3 PO; +OXYC5CAP2 PO; -OXYC5CAP4 PO
== END | disposition home or self-care (01) ==
LOC: CVU 15:21
PROVIDERS: ATTEND Internal Medicine Cardiovascular Disease
DX: I31.3 Pericardial effusion (noninflammatory) (principal); I25.2 Old myocardial infarction; Z95.1 Presence of aortocoronary bypass graft; Z87.891 Personal history of nicotine dependence
CPT/HCPCS: C8929

== ENCOUNTER 2017-07-27 09:27 | Emergency (ER) | payer MEDICAID ==
[~2017-07-27] VITALS: Ht 180.3 cm; Wt 112.0 kg
[2017-07-27] MEDS ORDERED: FENO134C PO (10:18)
[2017-07-27] MEDS ORDERED: ASPIRIN 81 MG TABLET CHEW PO ONE (10:30)
[2017-07-27] MEDS ORDERED: ASPIRIN 81 MG TABLET CHEW ONE (10:38)
[2017-07-27 10:53] LABS: HEMATOCRIT 47.8 % (39.2-51.8); HEMOGLOBIN 16.3 g/dL (13.7-18.0); WHITE BLOOD COUNT 7.3 x10^3/uL (3.4-10)
[2017-07-27 10:59] LABS: BLOOD UREA NITROGEN 8 mg/dL (7-18)
[2017-07-27] MEDS ORDERED: KETOROLAC 30 MG/1 ML IM ONE (11:00)
[2017-07-27 11:03] LABS: IS PT STATUS REG ER OR PRE ER? YES
[2017-07-27] MEDS ORDERED: KETOROLAC 30 MG/1 ML ONE (11:06)
[2017-07-27 12:08] VITALS: BP 122/81
== END 2017-07-27 12:24 | disposition home or self-care (01) ==
LOC: ED 12:10
DX: R07.89 Other chest pain (principal); I10 Essential (primary) hypertension; J45.909 Unspecified asthma, uncomplicated; K21.9 Gastro-esophageal reflux disease without esophagitis; I25.2 Old myocardial infarction; I25.10 Atherosclerotic heart disease of native coronary artery without angina pectoris; Z87.891 Personal history of nicotine dependence; Z90.49 Acquired absence of other specified parts of digestive tract
CPT/HCPCS: 36415; 80048; 82040; 84484; 85025; 93005; 96372; 99285; J1885

== ENCOUNTER 2017-09-10 12:36 | Emergency (ER) | payer MEDICAID ==
[~2017-09-10] VITALS: Ht 177.8 cm; Wt 120.0 kg
[~2017-09-10 12:36] MED LIST changes: +FENO134C PO
[2017-09-10] MEDS ORDERED: ASPIRIN 81 MG TABLET CHEW PO ONE (13:00)
[2017-09-10 13:16] LABS: HEMATOCRIT 47.3 % (39.2-51.8); HEMOGLOBIN 15.9 g/dL (13.7-18.0); WHITE BLOOD COUNT 12.2 x10^3/uL (3.4-10)
[2017-09-10 13:29] LABS: BLOOD UREA NITROGEN 10 mg/dL (7-18)
[2017-09-10 13:38] LABS: IS PT STATUS REG ER OR PRE ER? YES
[2017-09-10 14:33] VITALS: BP 132/84
== END 2017-09-10 15:52 | disposition home or self-care (01) ==
LOC: ED 12:52
DX: J20.9 Acute bronchitis, unspecified (principal); J02.8 Acute pharyngitis due to other specified organisms; B97.89 Other viral agents as the cause of diseases classified elsewhere; I10 Essential (primary) hypertension
CPT/HCPCS: 36415; 71020; 80048; 82040; 83880; 84484; 85025; 93005; 99285

== ENCOUNTER 2018-07-18 10:27 | Observation (INO) | payer MEDICAID, OTHER ==
[~2018-07-18] VITALS: Ht 180.3 cm; Wt 119.8 kg
[~2018-07-18 10:27] MED LIST changes: -AMLO10TA2 PO; +AMLO10TA6 PO; -CITA20TA5 PO; +CITA20TA6 PO
[2018-07-18] MEDS ORDERED: ONDANSETRON 2MG/ML, 2ML IVPush ONE (11:00)
[2018-07-18] MEDS ORDERED: MORPHINE SULFATE 4 MG/ML, 1ML IVPush PRN (11:00)
[2018-07-18] MEDS ORDERED: NITROGLYCERIN SINGLE TAB 0.4 MG SL PRN (11:00)
[2018-07-18] MEDS ORDERED: ASPIRIN 81 MG TABLET CHEW ONE (11:06)
[2018-07-18] MEDS ORDERED: NITROGLYCERIN SINGLE TAB 0.4 MG SL ONE ×2 (11:06→11:14)
[2018-07-18] MEDS ORDERED: ONDANSETRON 2MG/ML, 2ML ONE (11:06)
[2018-07-18] MEDS ORDERED: MORPHINE SULFATE 4 MG/ML, 1ML ONE ×2 (11:07→20:05)
[2018-07-18 11:19] LABS: BASOPHILS # (AUTO) 0.03 x10^3/uL (0-0.1); BASOPHILS % (AUTO) 1 % (0-1); EOSINOPHILS # (AUTO) 0.13 x10^3/uL (0-0.4); EOSINOPHILS % (AUTO) 2 % (1-7); LYMPHOCYTES # (AUTO) 1.94 x10^3/uL (1-3.4); LYMPHOCYTES % (AUTO) 28 % (22-44); MD NO; MEAN CORPUSCULAR HEMOGLOBIN 32.6 pg (27.5-34.5); MEAN CORPUSCULAR HGB CONC 34.7 g/dL (33.2-36.2); MEAN CORPUSCULAR VOLUME 93.8 fL (81-97); MEAN PLATELET VOLUME 7.3 fL (7.4-10.4); MONOCYTES # (AUTO) 0.45 x10^3/uL (0.2-0.8); MONOCYTES % (AUTO) 7 % (2-9); NEUTROPHILS # (AUTO) 4.32 x10^3/uL (1.8-6.8); NEUTROPHILS % (AUTO) 63 % (42-75); PLATELET COUNT 316 x10^3/uL (130-400); RED BLOOD COUNT 5.19 x10^6/uL (4.38-5.82); RED CELL DISTRIBUTION WIDTH 13.5 % (9.4-14.8)
[2018-07-18 11:28] LABS: ALBUMIN 3.8 g/dL (3.4-5.0); ANION GAP 7 mmol/L (5-15); CALCIUM 8.9 mg/dL (8.5-10.1); CHLORIDE 107 mmol/L (98-107); CREATININE 0.97 mg/dL (0.7-1.3)
[2018-07-18 11:29] LABS: INTERNATIONAL NORMALIZED RATIO 0.99 (0.93-1.1); PROTHROMBIN TIME 10.2 Seconds (9.6-11.5)
[2018-07-18 11:32] LABS: TROPONIN I < 0.015 ng/mL (0.000-0.045)
[2018-07-18 13:53] VITALS: BP 109/71
[2018-07-18] MEDS ORDERED: CETI10TA18 PO (14:44)
[2018-07-18] MEDS ORDERED: CHOL2000 PO (14:44)
[2018-07-18] MEDS ORDERED: L.AC1CAP6 PO (14:44)
[2018-07-18 14:53] VITALS: BP 107/69
[2018-07-18] MEDS: NITROGLYCERIN 0.4 MG BOTTLE (25 TABS) SL PRN ×2 (14:55→15:05)
[2018-07-18] MEDS ORDERED: LABETALOL 5MG/ML, 20ML IVPush PRN (15:00)
[2018-07-18] MEDS ORDERED: ACETAMINOPHEN 325 MG TABLET PO PRN (15:00)
[2018-07-18] MEDS ORDERED: hydrALAzine 20 MG/ML, 1ML IVPush PRN (15:00)
[2018-07-18 15:04] VITALS: BP 102/66
[2018-07-18] MEDS: HEPARIN 5,000 UNITS/ML, 1ML SQ SCH (15:10)
[2018-07-18 15:11] VITALS: BP 114/74
[2018-07-18 15:21] LABS: TROPONIN I < 0.015 ng/mL (0.000-0.045)
[2018-07-18] MEDS ORDERED: RIZATRIPTAN 10MG TABLET PO PRN (16:00)
[2018-07-18] MEDS: GABAPENTIN 400 MG CAPSULE PO SCH ×2 (17:31→20:12)
[2018-07-18 19:47] VITALS: BP 105/68
[2018-07-18] MEDS ORDERED: MORPHINE SULFATE 4 MG/ML, 1ML IVPush ONE (20:00)
[2018-07-18 20:56] LABS: TROPONIN I < 0.015 ng/mL (0.000-0.045)
[2018-07-18] MEDS ORDERED: FENOFIBRATE 145 MG TABLET PO SCH (21:00)
[2018-07-18] MEDS ORDERED: CHOLECALCIFEROL 1,000 UNIT TABLET PO SCH (21:00)
[2018-07-18] MEDS ORDERED: CETIRIZINE 10 MG TABLET PO SCH (21:00)
[2018-07-18] MEDS ORDERED: LACTOBACILLUS CHEW TABLET PO SCH (21:00)
[2018-07-19] MEDS: HEPARIN 5,000 UNITS/ML, 1ML SQ SCH ×2 (00:49→08:02)
[2018-07-19 00:50] VITALS: BP 108/70
[2018-07-19 05:38] LABS: BASOPHILS # (AUTO) 0.03 x10^3/uL (0-0.1); BASOPHILS % (AUTO) 1 % (0-1); EOSINOPHILS # (AUTO) 0.22 x10^3/uL (0-0.4); EOSINOPHILS % (AUTO) 4 % (1-7); LYMPHOCYTES # (AUTO) 1.99 x10^3/uL (1-3.4); LYMPHOCYTES % (AUTO) 34 % (22-44); MD NO; MEAN CORPUSCULAR HEMOGLOBIN 32.3 pg (27.5-34.5); MEAN CORPUSCULAR HGB CONC 33.9 g/dL (33.2-36.2); MEAN CORPUSCULAR VOLUME 95.4 fL (81-97); MEAN PLATELET VOLUME 7.5 fL (7.4-10.4); MONOCYTES % (AUTO) 9 % (2-9); NEUTROPHILS # (AUTO) 3.07 x10^3/uL (1.8-6.8); NEUTROPHILS % (AUTO) 53 % (42-75); PLATELET COUNT 294 x10^3/uL (130-400); RED BLOOD COUNT 5.31 x10^6/uL (4.38-5.82); RED CELL DISTRIBUTION WIDTH 14.2 % (9.4-14.8)
[2018-07-19 05:48] LABS: ANION GAP 6 mmol/L (5-15); CALCIUM 8.8 mg/dL (8.5-10.1); CHLORIDE 106 mmol/L (98-107)
[2018-07-19 05:52] LABS: CHOL/HDL RATIO 4.3; CHOLESTEROL, TOTAL 163 mg/dL (140-239); HDL CHOL % 23 % (26-37); HDL CHOLESTEROL (DIRECT) 38 mg/dL (40-60); LDL CHOLESTEROL,CALCULATED 104 mg/dL (54-169); LDL/HDL RATIO 2.7 (0.5-3.0); TRIGLYCERIDES 105 mg/dL (50-200); VLDL CHOLESTEROL 21 mg/dL (0-25)
[2018-07-19] MEDS ORDERED: METOPROLOL SUCCINATE 25 MG TAB.ER.24H PO SCH (06:00)
[2018-07-19 06:54] VITALS: BP 125/80
[2018-07-19] MEDS ORDERED: REGADENOSON 0.4 MG/5 ML SYRINGE ONE (08:01)
[2018-07-19] MEDS: GABAPENTIN 400 MG CAPSULE PO SCH (08:02)
[2018-07-19] MEDS ORDERED: CLOPIDOGREL 75 MG TABLET PO SCH (09:00)
[2018-07-19] MEDS ORDERED: ASPIRIN 81 MG TABLET EC PO SCH (09:00)
[2018-07-19] MEDS ORDERED: PANTOPROZOLE 40MG TABLET PO SCH (09:00)
[2018-07-19] MEDS ORDERED: LAMOTRIGINE 200 MG TABLET PO SCH (09:00)
[2018-07-19] MEDS ORDERED: EMTRICITABINE/TENOFOVIR 200 MG/300 MG TABLET PO SCH (09:00)
[2018-07-19] MEDS ORDERED: LISINOPRIL 10 MG TABLET PO SCH (09:00)
[2018-07-19] MEDS ORDERED: CITALOPRAM 20 MG TABLET PO SCH (09:00)
[2018-07-19] MEDS ORDERED: POTASSIUM CHLORIDE 10 MEQ TABLET.ER PO SCH (09:00)
[2018-07-19 12:32] VITALS: BP 125/83
== END 2018-07-19 14:55 | disposition home or self-care (01) ==
LOC: ED 11:50 → INTOOBSV 11:52 → EDIP 11:52 → 5SO 13:16 → DCLOUNGE 07-19 14:41
PROVIDERS: ADMIT Internal Medicine; ATTEND Internal Medicine
DX: R07.9 Chest pain, unspecified (principal); E66.9 Obesity, unspecified; I10 Essential (primary) hypertension; I25.10 Atherosclerotic heart disease of native coronary artery without angina pectoris; I25.2 Old myocardial infarction; J45.909 Unspecified asthma, uncomplicated; K21.9 Gastro-esophageal reflux disease without esophagitis; Z79.02 Long term (current) use of antithrombotics/antiplatelets; Z86.711 Personal history of pulmonary embolism; Z87.891 Personal history of nicotine dependence; Z95.1 Presence of aortocoronary bypass graft
CPT/HCPCS: 36415; 71045; 78452; 80048; 80061; 82040; 83735; 84100; 84443; 84484; 85025; 85610; 85730; 93005; 93017; 96372; 96374; 96375; 96376; 99285; A9502; C8929; C9898; G0378; J1644; J2405; J2785; Q9957

== ENCOUNTER 2018-09-27 06:17 | Emergency (ER) | payer OTHER ==
[~2018-09-27] VITALS: Ht 177.8 cm; Wt 122.2 kg
[~2018-09-27 06:17] MED LIST changes: -ASPI-621 PO; +ASPI81TA45 PO; +CETI10TA18 PO; +CHOL2000 PO; +L.AC1CAP6 PO
[2018-09-27 06:19] VITALS: BP 128/84
[2018-09-27] MEDS ORDERED: KETOROLAC 30 MG/1 ML ONE (06:52)
[2018-09-27] MEDS ORDERED: DIAZEPAM 5 MG TABLET ONE (06:53)
[2018-09-27] MEDS ORDERED: DIAZEPAM 5 MG TABLET PO ONE (07:00)
[2018-09-27] MEDS ORDERED: KETOROLAC 30 MG/1 ML IM ONE (07:00)
[2018-09-27 07:02] LABS: BASOPHILS # (AUTO) 0.03 x10^3/uL (0-0.1); BASOPHILS % (AUTO) 0 % (0-1); EOSINOPHILS # (AUTO) 0.19 x10^3/uL (0-0.4); EOSINOPHILS % (AUTO) 2 % (1-7); LYMPHOCYTES # (AUTO) 1.94 x10^3/uL (1-3.4); LYMPHOCYTES % (AUTO) 23 % (22-44); MD NO; MEAN CORPUSCULAR HEMOGLOBIN 31.2 pg (27.5-34.5); MEAN CORPUSCULAR HGB CONC 34.2 g/dL (33.2-36.2); MEAN CORPUSCULAR VOLUME 91.3 fL (81-97); MEAN PLATELET VOLUME 7.3 fL (7.4-10.4); MONOCYTES # (AUTO) 0.61 x10^3/uL (0.2-0.8); MONOCYTES % (AUTO) 7 % (2-9); NEUTROPHILS # (AUTO) 5.71 x10^3/uL (1.8-6.8); NEUTROPHILS % (AUTO) 67 % (42-75); PLATELET COUNT 316 x10^3/uL (130-400); RED BLOOD COUNT 5.58 x10^6/uL (4.38-5.82); RED CELL DISTRIBUTION WIDTH 12.7 % (9.4-14.8)
[2018-09-27 07:13] LABS: ALBUMIN 3.9 g/dL (3.4-5.0); ANION GAP 7 mmol/L (5-15); CALCIUM 8.9 mg/dL (8.5-10.1); CHLORIDE 106 mmol/L (98-107); CREATININE 1.19 mg/dL (0.7-1.3)
== END 2018-09-27 08:15 | disposition home or self-care (01) ==
LOC: ED 08:09
DX: S46.811A Strain of other muscles, fascia and tendons at shoulder and upper arm level, right arm, initial encounter (principal); S29.012A Strain of muscle and tendon of back wall of thorax, initial encounter; S80.211A Abrasion, right knee, initial encounter; J45.909 Unspecified asthma, uncomplicated; I10 Essential (primary) hypertension; I25.2 Old myocardial infarction; I25.10 Atherosclerotic heart disease of native coronary artery without angina pectoris; F41.1 Generalized anxiety disorder; Z90.49 Acquired absence of other specified parts of digestive tract; Z95.1 Presence of aortocoronary bypass graft; W01.0XXA Fall on same level from slipping, tripping and stumbling without subsequent striking against object, initial encounter; Y93.89 Activity, other specified; Y92.69 Other specified industrial and construction area as the place of occurrence of the external cause; Y99.0 Civilian activity done for income or pay
CPT/HCPCS: 36415; 72072; 73030; 80048; 82040; 85025; 93005; 96372; 99284; J1885

== ENCOUNTER 2018-12-21 11:45 | Emergency (ER) | payer OTHER ==
[~2018-12-21] VITALS: Ht 180.3 cm; Wt 122.9 kg
[~2018-12-21 11:45] MED LIST changes: -AMLO10TA6 PO; +AMLO10TA8 PO; -GABA800T2 PO; +GABA800T5 PO
[2018-12-21] MEDS ORDERED: SODIUM CHLORIDE FLUSH 10ML SYR IVF ONE (12:00)
[2018-12-21 12:21] LABS: BASOPHILS # (AUTO) 0.03 x10^3/uL (0-0.1); BASOPHILS % (AUTO) 1 % (0-1); EOSINOPHILS # (AUTO) 0.24 x10^3/uL (0-0.4); EOSINOPHILS % (AUTO) 3 % (1-7); LYMPHOCYTES # (AUTO) 2.14 x10^3/uL (1-3.4); LYMPHOCYTES % (AUTO) 31 % (22-44); MD NO; MEAN CORPUSCULAR HEMOGLOBIN 30.3 pg (27.5-34.5); MEAN CORPUSCULAR HGB CONC 33.6 g/dL (33.2-36.2); MEAN CORPUSCULAR VOLUME 90.1 fL (81-97); MEAN PLATELET VOLUME 7.4 fL (7.4-10.4); MONOCYTES # (AUTO) 0.47 x10^3/uL (0.2-0.8); MONOCYTES % (AUTO) 7 % (2-9); NEUTROPHILS # (AUTO) 4.03 x10^3/uL (1.8-6.8); NEUTROPHILS % (AUTO) 58 % (42-75); PLATELET COUNT 314 x10^3/uL (130-400); RED BLOOD COUNT 5.66 x10^6/uL (4.38-5.82)
[2018-12-21 12:29] LABS: ALBUMIN 3.8 g/dL (3.4-5.0); ANION GAP 6 mmol/L (5-15); CALCIUM 8.6 mg/dL (8.5-10.1); CHLORIDE 106 mmol/L (98-107)
[2018-12-21 12:30] LABS: CREATININE 0.98 mg/dL (0.7-1.3)
--- NOTE | 2018-12-21 13:11 | NUR ---
INVENTORY COORDINATOR: PT TO ED ROOM 28 FROM LOBBY AT THIS TIME
[2018-12-21] MEDS ORDERED: POTASSIUM CHLORIDE 20 MEQ TAB.ER.PRT ONE (13:20)
[2018-12-21] MEDS ORDERED: MECLIZINE CHEWABLE 25 MG TAB PO ONE (13:30)
[2018-12-21] MEDS ORDERED: DIPHENHYDRAMINE 50 MG/ML, 1ML IVPush ONE (13:30)
[2018-12-21] MEDS ORDERED: KETOROLAC 30 MG/1 ML IVPush ONE (13:30)
[2018-12-21] MEDS ORDERED: METOCLOPRAMIDE 5 MG/ML, 2ML IVPush ONE (13:30)
[2018-12-21] MEDS ORDERED: KETOROLAC 30 MG/1 ML ONE (13:42)
[2018-12-21] MEDS ORDERED: MECLIZINE CHEWABLE 25 MG TAB ONE (13:42)
[2018-12-21] MEDS ORDERED: DIPHENHYDRAMINE 50 MG/ML, 1ML ONE (13:43)
[2018-12-21] MEDS ORDERED: METOCLOPRAMIDE 5 MG/ML, 2ML ONE (13:43)
[2018-12-21 14:56] VITALS: BP 138/78
== END 2018-12-21 14:58 | disposition home or self-care (01) ==
LOC: ED 13:29
DX: G43.909 Migraine, unspecified, not intractable, without status migrainosus (principal); H81.399 Other peripheral vertigo, unspecified ear; H83.09 Labyrinthitis, unspecified ear; I10 Essential (primary) hypertension; I25.2 Old myocardial infarction; F41.1 Generalized anxiety disorder; I25.10 Atherosclerotic heart disease of native coronary artery without angina pectoris; K21.9 Gastro-esophageal reflux disease without esophagitis
CPT/HCPCS: 36415; 80048; 82040; 85025; 96374; 96375; 99283; J1200; J1885; J2765

== ENCOUNTER 2019-12-28 05:19 | Emergency (ER) | payer OTHER ==
[~2019-12-28] VITALS: Ht 180.3 cm; Wt 125.4 kg
[~2019-12-28 05:19] MED LIST changes: -EZET10TA18 PO; +EZET10TA70 PO; -HYDR-3307 PO; +HYDR-36 PO
--- NOTE | 2019-12-28 07:22 | NUR ---
PT RESTING IN BED, CALL LIGHT IN REACH. REPORT RECIEVED FROM MUKUL. PPE IN PLACE
[2019-12-28 07:23] VITALS: BP 127/68
--- NOTE | 2019-12-28 07:52 | NUR ---
DISCHARGE INSTRUCTIONS REVIEWED
== END 2019-12-28 07:55 | disposition home or self-care (01) ==
LOC: ED 06:06
DX: J20.9 Acute bronchitis, unspecified (principal); I10 Essential (primary) hypertension; I25.10 Atherosclerotic heart disease of native coronary artery without angina pectoris; J45.909 Unspecified asthma, uncomplicated; Z87.891 Personal history of nicotine dependence
CPT/HCPCS: 71045; 99283

== ENCOUNTER 2020-01-24 07:15 | Emergency (ER) | payer OTHER ==
[~2020-01-24] VITALS: Ht 180.3 cm; Wt 128.4 kg
[2020-01-24 07:17] VITALS: BP 146/80
[2020-01-24] MEDS ORDERED: OXYMETAZOLINE NASAL SPRAY 0.05%,30ML ONE (07:23)
[2020-01-24 08:59] LABS: BASOPHILS # (AUTO) 0.03 x10^3/uL (0-0.1); BASOPHILS % (AUTO) 1 % (0-1); EOSINOPHILS # (AUTO) 0.16 x10^3/uL (0-0.4); EOSINOPHILS % (AUTO) 3 % (1-7); LYMPHOCYTES # (AUTO) 1.57 x10^3/uL (1-3.4); LYMPHOCYTES % (AUTO) 25 % (22-44); MD NO; MEAN CORPUSCULAR HEMOGLOBIN 31.3 pg (27.5-34.5); MEAN CORPUSCULAR VOLUME 92.1 fL (81-97); MEAN PLATELET VOLUME 7.4 fL (7.4-10.4); MONOCYTES # (AUTO) 0.49 x10^3/uL (0.2-0.8); MONOCYTES % (AUTO) 8 % (2-9); NEUTROPHILS # (AUTO) 4.13 x10^3/uL (1.8-6.8); NEUTROPHILS % (AUTO) 65 % (42-75); PLATELET COUNT 317 x10^3/uL (130-400); RED BLOOD COUNT 5.39 x10^6/uL (4.38-5.82); RED CELL DISTRIBUTION WIDTH 14.1 % (9.4-14.8)
[2020-01-24 09:19] LABS: ALANINE AMINOTRANSFERASE 40 U/L (12-78); ALKALINE PHOSPHATASE 73 U/L (45-117); ANION GAP 4 mmol/L (5-15); BILIRUBIN,TOTAL 0.3 mg/dL (0.2-1.0); CHLORIDE 107 mmol/L (98-107); CREATININE 0.95 mg/dL (0.7-1.3); TOTAL PROTEIN 7.2 g/dL (6.4-8.2)
[2020-01-24 09:21] LABS: ALBUMIN 3.8 g/dL (3.4-5.0)
== END 2020-01-24 09:55 ==
LOC: ED 07:48
DX: Z00.00 Encounter for general adult medical examination without abnormal findings (principal); J20.8 Acute bronchitis due to other specified organisms; J02.8 Acute pharyngitis due to other specified organisms; B97.89 Other viral agents as the cause of diseases classified elsewhere; I10 Essential (primary) hypertension; I25.10 Atherosclerotic heart disease of native coronary artery without angina pectoris; K21.9 Gastro-esophageal reflux disease without esophagitis; I25.2 Old myocardial infarction; J45.909 Unspecified asthma, uncomplicated; E66.9 Obesity, unspecified; G43.909 Migraine, unspecified, not intractable, without status migrainosus; Z90.49 Acquired absence of other specified parts of digestive tract; Z95.1 Presence of aortocoronary bypass graft; Z87.891 Personal history of nicotine dependence
CPT/HCPCS: 36415; 71045; 80053; 85025; 99284

== ENCOUNTER → 2020-03-15 | Outpatient (CLI) | payer OTHER, MEDICAID ==
[~2020-03-15] MED LIST changes: +HYDR-3246 PO; -HYDR-36 PO
== END | disposition home or self-care (01) ==
LOC: CVU 08:31
PROVIDERS: ATTEND Internal Medicine Cardiovascular Disease
DX: Z01.810 Encounter for preprocedural cardiovascular examination (principal); I11.9 Hypertensive heart disease without heart failure
CPT/HCPCS: C8929; Q9957

== ENCOUNTER 2020-04-08 12:09 | Outpatient (CLI) | payer OTHER, MEDICAID ==
[~2020-04-08 12:09] MED LIST changes: +REGADENOSON 0.4 MG/5 ML SYRINGE ONE
== END 2020-04-08 23:59 | disposition home or self-care (01) ==
LOC: CFH 12:09
PROVIDERS: ATTEND Internal Medicine Cardiovascular Disease
DX: Z01.810 Encounter for preprocedural cardiovascular examination (principal); I10 Essential (primary) hypertension; I25.119 Atherosclerotic heart disease of native coronary artery with unspecified angina pectoris; I21.09 ST elevation (STEMI) myocardial infarction involving other coronary artery of anterior wall
CPT/HCPCS: 78452; 93017; A9502; J2785